=== PATIENT | female | born 1980 | race Caucasian/White ===

== ENCOUNTER 2018-08-26 08:07 | Emergency (ER) | payer SELFPAY ==
--- NOTE | 2018-08-26 09:18 | ER Document Report ---
ED General - General Chief Complaint: Possible Kidney Stone Stated Complaint: FLANK PAIN Time Seen by Provider: 08/26/18 08:29 Primary Care Provider: SAL GOODE MD [COMMUNITY BASED STAFF] - Follow up in 3-5 days Notes: Patient is a 37-year-old female that presents to the emergency department for chief complaint of constipation. Patient reports that she is been having intermittent abdominal cramping, and back pain mainly lower, and has not had a bowel movement in approximately 10 days. She was seen by her primary care physician 4 times over the last several days, for these complaints, she is been trying different medications including MiraLAX, magnesium citrate, Dulcolax, suppositories, and enemas without relief of her constipation. She states she has been eating without difficulty, denies having any abdominal distention, but does admit to having cramping which she currently rates as a 2 out of 10. She denies noting any vomiting in the last 24 hours, fevers, chills, dysuria, hematuria. Past Medical History: Kidney stones Past Surgical History: Denies pertinent surgical history Social History: Denies tobacco, alcohol or drug use. Family History: Reviewed and noncontributory for presenting illness Allergies: Reviewed, see documented allergy list. REVIEW OF SYSTEMS: Other than noted above, the 12 point review of systems was reviewed with the patient and were negative, all pertinent findings are included in the HPI. PHYSICAL EXAMINATION: Vital signs reviewed, nursing noted reviewed. GENERAL: Well-appearing, well-nourished and in no acute distress. HEAD: Atraumatic, normocephalic. EYES: Eyes appear normal, extraocular movements intact, sclera anicteric, conjunctiva are normal. ENT: nares patent, oropharynx clear without exudates. Moist mucous membranes. NECK: Normal range of motion, supple without lymphadenopathy LUNGS: Breath sounds clear to auscultation bilaterally and equal. No wheezes rales or rhonchi. HEART: Regular rate and rhythm without murmurs ABDOMEN: Soft, nontender, nondistended, normoactive bowel sounds. No rebound, guarding, or rigidity. No masses appreciated. EXTREMITIES: Nontender, good range of motion, no pitting or edema. NEUROLOGICAL: No focal neurological deficits. Moves all extremities spontaneously Motor and sensory grossly intact on exam. PSYCH: Normal mood, normal affect. SKIN: Warm, Dry, normal turgor, no rashes or lesions noted on exposed skin - Related Data Allergies/Adverse Reactions: cefaclor [From Ceclor] Allergy (Verified 08/26/18 08:09) Cephalosporins Allergy (Verified 08/26/18 08:09) hydromorphone HCl [From Dilaudid] Adverse Reaction (Intermediate, Verified 08/26/18 08:09) Hallucinations Past Medical History - Social History Smoking Status: Never Smoker Family History: Reviewed & Not Pertinent Patient has suicidal ideation: No Patient has homicidal ideation: No Neurological Medical History: Reports: Hx Seizures Renal/ Medical History: Reports: Hx Kidney Stones. Denies: Hx Peritoneal Dialysis Psychiatric Medical History: Reports: Hx Attention Deficit Hyperactivity Disorder - Immunizations Hx Diphtheria, Pertussis, Tetanus Vaccination: Yes Physical Exam - Vital signs Vitals: Temp Pulse Resp BP Pulse Ox 98.0 F 81 14 118/85 97 08/26/18 08:12 08/26/18 08:12 08/26/18 08:12 08/26/18 08:12 08/26/18 08:12 Course - Re-evaluation Re-evalutation: Patient seen and examined vital signs reviewed. Laboratory data and imaging were ordered as appropriate for the patient's presenting symptoms and complaint, with consideration of any critical or life threatening conditions that may be associated with their obtained history and exam as noted above. Patient was treated with soapsuds enema Results were reviewed when available and demonstrated moderate stool burden on x-ray UA unremarkable, urine negative The patient was re-evaluated and was stable Evaluation was most consistent with constipation, will prescribe the patient GoLYTELY as she was failed to have significant results with other [id number] medications. Results were discussed with the patient at this point, after careful consideration I feel that that patient can be discharged from the emergency department, the patient was educated treatments and reasons to return to the emergency department based on their presumed diagnosis as noted above, they were advised to followup with a primary care physician in 2-3 days. Patient was agreeable to plan of care. *Note is created using voice recognition software and may contain spelling, syntax or grammatical errors. Laboratory 08/26/18 08:30 Urine Color YELLOW Urine Appearance SLIGHTLY-CLOUDY Urine pH 7.0 Ur Specific [place] 1.013 Urine Protein NEGATIVE Urine Glucose (UA) NEGATIVE Urine Ketones NEGATIVE Urine Blood NEGATIVE Urine Nitrite NEGATIVE Urine Bilirubin NEGATIVE Urine Urobilinogen NEGATIVE Ur Leukocyte Esterase NEGATIVE Urine WBC (Auto) 3 Urine RBC (Auto) 3 Urine Bacteria (Auto) TRACE Squamous Epi Cells Auto 6 Urine Mucus (Auto) RARE Urine Ascorbic Acid NEGATIVE Urine HCG, Qual NEGATIVE KUB X-Ray 08/26/18 08:58 IMPRESSION: NO RADIOGRAPHIC EVIDENCE FOR ACUTE ABDOMINAL DISEASE. MODERATE STOOL CONSISTENT WITH CONSTIPATION. - Vital Signs Vital signs: Temp Pulse Resp BP Pulse Ox 98.2 F 75 18 122/81 100 08/26/18 12:10 08/26/18 12:10 08/26/18 12:10 08/26/18 12:10 08/26/18 12:10 Discharge - Discharge Clinical Impression: Constipation Qualifiers: Constipation type: unspecified constipation type Qualified Code(s): K59.00 - Constipation, unspecified Condition: Stable Disposition: HOME, SELF-CARE Instructions: Constipation ([facility]) Prescriptions: Peg 3350/Na Sulf,Bicarb,Cl/KCl [Golytely Solution 4000 ml] 4,000 ml PO DAILY #1 bottle Forms: Return to Work Referrals: SAL GOODE MD [COMMUNITY BASED STAFF] - Follow up in 3-5 days
[2018-08-26 09:28] LABS: APPEARANCE,URINE SLIGHTLY-CLOUDY; BILIRUBIN,URINE NEGATIVE (NEGATIVE); COLOR,URINE YELLOW; GLUCOSE, URINE NEGATIVE (NEGATIVE); KETONES,URINE NEGATIVE (NEGATIVE); LEUKOCYTE ESTERASE,URINE NEGATIVE (NEGATIVE); NITRITE,URINE NEGATIVE (NEGATIVE); PROTEIN,URINE NEGATIVE (NEGATIVE); URINE SPECIFIC GRAVITY 1.013; UROBILINOGEN,URINE NEGATIVE mg/dL (<2.0)
--- NOTE | 2018-08-26 09:49 | RADIOLOGY REPORT (SQ) ---
EXAM DESCRIPTION: KUB/ABDOMEN (SINGLE VIEW) COMPLETED DATE/TIME: 08/26/2018 9:37 am REASON FOR STUDY: constipation, abdominal pain COMPARISON: 05/04/2015. NUMBER OF VIEWS: One view. TECHNIQUE: Supine radiographic image of the abdomen acquired. LIMITATIONS: None. FINDINGS: BOWEL GAS PATTERN: Normal bowel gas pattern. No dilated loops. Moderate stool throughout colon consistent constipation. CALCIFICATIONS: No suspicious calcifications. SOFT TISSUES: No gross mass or suggestion of organomegaly. HARDWARE: None in the abdomen. BONES: No acute fracture. No worrisome bone lesions. OTHER: No other significant finding. IMPRESSION: NO RADIOGRAPHIC EVIDENCE FOR ACUTE ABDOMINAL DISEASE. MODERATE STOOL CONSISTENT WITH CO NSTIPATION. TECHNICAL DOCUMENTATION: JOB ID: [id number] [employer]- All Rights Reserved Reading location - IP/workstation name: [email or web address]
[2018-08-26 12:13] VITALS: BP 122/81
== END 2018-08-26 12:13 | disposition home or self-care (01) ==
LOC: ER 08:07
DX: K59.00 Constipation, unspecified (principal); Z88.1 Allergy status to other antibiotic agents
CPT/HCPCS: 74018; 81001; 81025; 99284

== ENCOUNTER → 2019-02-12 | Outpatient (CLI) | payer BC ==
--- NOTE | 2019-02-13 16:50 | WOMENS IMAGING REPORT ---
EXAM DESCRIPTION: 3D SCREENING MAMMO BILAT COMPLETED DATE/TIME: 02/12/2019 7:56 am REASON FOR STUDY: Z12.31 ENCOUNTER FOR SCREENING MAMMOGRAM FOR MALIGNANT NEOPLASM OF BREAST Z12.31 ENCNTR SCREEN MAMMOGRAM FOR MALIGNANT NEOPLASM OF KAYLI COMPARISON: None. EXAM PARAMETERS: Views: Standard craniocaudal and mediolateral oblique views of each breast recorded using digital acquisition and breast tomosynthesis. Read with the assistance of CAD. .[facility] - [employer]isher Version 9.2 LIMITATIONS: None. FINDINGS: No suspicious masses, suspicious calcifications or architectural distortion. No areas of c oncern. IMPRESSION: NEGATIVE MAMMOGRAM. BIRADS 1. BREAST DENSITY: b. There are scattered areas of fibroglandular density. BIRAD: ASSESSMENT: 1 NEGATIVE RECOMMENDATION: ROUTINE SCREENING COMMENT: The patient has been notified of the results by letter per MQSA requirements. Additional no tification policies are in place for contacting patient with suspicious or incomplete findings. Quality ID #[id number]: The [employer] recommends an annual screening mammogram for women aged 40 years or over. This facility utilizes a reminder system to ensure that all patients receive reminder letters, and/or direct phone calls for appointments. This includes reminders for routine scr eening mammograms, diagnostic mammograms, or other Breast Imaging Interventions when appropriate. Th is patient will be placed in the appropriate reminder system. TECHNICAL DOCUMENTATION: FINDING NUMBER: (1) ASSESSMENT: (1) JOB ID: [id number] [employer]- All Rights Reserved Reading location - IP/workstation name: [email or web address]
== END ==
LOC: WI 07:26
PROVIDERS: ATTEND Obstetrics & Gynecology Gynecology
DX: Z12.31 Encounter for screening mammogram for malignant neoplasm of breast (principal)
CPT/HCPCS: 77063; 77067

== ENCOUNTER 2019-05-05 08:48 | Emergency (ER) | payer BC ==
[2019-05-05 09:36] LABS: APPEARANCE,URINE SLIGHTLY-CLOUDY; BILIRUBIN,URINE NEGATIVE (NEGATIVE); CALCIUM OXALATE CRYSTALS,URINE FEW /HPF; COLOR,URINE YELLOW; GLUCOSE, URINE NEGATIVE (NEGATIVE); KETONES,URINE 20 mg/dL (NEGATIVE); LEUKOCYTE ESTERASE,URINE NEGATIVE (NEGATIVE); NITRITE,URINE NEGATIVE (NEGATIVE); PROTEIN,URINE NEGATIVE (NEGATIVE); URINE SPECIFIC GRAVITY 1.021
[2019-05-05 10:07] LABS: ABSOLUTE MONOCYTES (AUTO) 0.4 10^3/uL (0.1-1.4); BASOPHILS % (AUTO) 0.7 % (0-2); TOTAL CELLS COUNTED % (AUTO) 100 %
[2019-05-05 10:12] LABS: ABSOLUTE LYMPHOCYTES (AUTO) 1.3 10^3/uL (0.5-4.7); ABSOLUTE NEUT (AUTO) 3.5 10^3/uL (1.7-8.2); EOSINOPHILS % (AUTO) 0.7 % (0-6); HEMATOCRIT 43.3 % (36.0-47.0); HEMOGLOBIN 14.6 g/dL (12.0-15.5); LYMPHOCYTES % (AUTO) 25.4 % (13-45); MEAN CORPUSCULAR HEMOGLOBIN 32.1 pg (27.0-33.4); MEAN CORPUSCULAR HGB CONC 33.7 g/dL (32.0-36.0); MEAN CORPUSCULAR VOLUME 95 fl (80-97); MONOCYTES % (AUTO) 6.8 % (3-13); PLATELET COUNT 235 10^3/uL (150-450); RED BLOOD COUNT 4.54 10^6/uL (3.72-5.28); RED CELL DISTRIBUTION WIDTH 12.2 % (11.5-14.0); SEGMENTED NEUTROPHILS % (AUTO) 66.4 % (42-78); WHITE BLOOD COUNT 5.2 10^3/uL (4.0-10.5)
[2019-05-05] MEDS ORDERED: NORMAL SALINE 1000 ML 1,000 ML IV ONE ×2 (10:18→11:14)
[2019-05-05] MEDS ORDERED: ONDANSETRON HCL INJ/PF 4 MG/2 ML SDV IV ONE (10:18)
--- NOTE | 2019-05-05 10:19 | ER Document Report ---
ED Medical Screen (RME) - General Chief Complaint: Nausea/Vomiting Stated Complaint: NAUSEA/VOMITING Time Seen by Provider: 05/05/19 10:10 Mode of Arrival: Ambulatory Information source: Patient Notes: Patient presents complaining of nausea with vomiting this morning. Patient states that she had a panic attack which prompted her visit here today patient states that she has had panic attacks since the end of February which coincides with when she was started on free T3. Patient feels that she is having a thyroid issue causing her nausea vomiting and panic attacks at this time. She denies any abdominal pain. I have greeted and performed a rapid initial assessment of this patient. A comprehensive ED assessment and evaluation of the patient, analysis of test results and completion of the medical decision making process will be conducted by additional ED providers. TRAVEL OUTSIDE OF THE [place] IN LAST 30 DAYS: No - Related Data Allergies/Adverse Reactions: cefaclor [From Ceclor] Allergy (Verified 05/05/19 08:58) Cephalosporins Allergy (Verified 05/05/19 08:58) hydromorphone HCl [From Dilaudid] Adverse Reaction (Intermediate, Verified 05/05/19 08:58) Hallucinations Past Medical History Neurological Medical History: Reports: Hx Seizures Renal/ Medical History: Reports: Hx Kidney Stones. Denies: Hx Peritoneal Dialysis Psychiatric Medical History: Reports: Hx Attention Deficit Hyperactivity Disorder - Immunizations Hx Diphtheria, Pertussis, Tetanus Vaccination: Yes Physical Exam - Vital signs Vitals: Temp Pulse Resp BP Pulse Ox 98.5 F 93 18 121/79 98 05/05/19 08:51 05/05/19 08:51 05/05/19 08:51 05/05/19 08:51 05/05/19 08:51 - General General appearance: Appears well, Alert In distress: None - Psychological Associated symptoms: Anxious Course - Vital Signs Vital signs: Temp Pulse Resp BP Pulse Ox 98.5 F 93 18 121/79 98 05/05/19 08:51 05/05/19 08:51 05/05/19 08:51 05/05/19 08:51 05/05/19 08:51 - Laboratory Result Diagrams: 05/05/19 09:50 05/05/19 09:50 Laboratory results interpreted by me: 05/05/19 09:07 Urine Ketones 20 H Urine Blood SMALL H Urine Urobilinogen 2.0 H
[2019-05-05 10:29] LABS: ALBUMIN 4.5 g/dL (3.5-5.0); ALKALINE PHOSPHATASE 77 U/L (38-126); ANION GAP 10 (5-19); ASPARTATE AMINO TRANSFERASE 17 U/L (14-36); BILIRUBIN,DIRECT 0.1 mg/dL (0.0-0.4); BILIRUBIN,TOTAL 0.8 mg/dL (0.2-1.3); BLOOD UREA NITROGEN 6 mg/dL (7-20); CALCIUM 10.5 mg/dL (8.4-10.2); CARBON DIOXIDE 27 mmol/L (22-30); CHLORIDE 102 mmol/L (98-107); GLUCOSE 96 mg/dL (75-110); POTASSIUM 4.3 mmol/L (3.6-5.0); TOTAL PROTEIN 7.9 g/dL (6.3-8.2)
[2019-05-05 10:49] LABS: FREE T3 3.22 pg/mL (2.77-5.27); FREE T4 (FREE THYROXINE) 1.29 ng/dL (0.78-2.19)
[2019-05-05 11:02] LABS: THYROID STIMULATING HORMONE 0.02 uIU/mL (0.47-4.68)
--- NOTE | 2019-05-05 11:21 | ER Document Report ---
ED General <JOSUÉ BROWN - Last Filed: 05/05/19 12:56> - General Mode of Arrival: Ambulatory TRAVEL OUTSIDE OF THE [place] IN LAST 30 DAYS: No <BUFFY BRUNO - Last Filed: 05/05/19 13:41> - General Chief Complaint: Nausea/Vomiting Stated Complaint: NAUSEA/VOMITING Time Seen by Provider: 05/05/19 10:10 Primary Care Provider: [facility] [Outside] - Follow up as needed - HPI Notes: Ms. Watkins is a 38-year-old female who is been under the care of a nurse practitioner receiving thyroid replacement therapy for hypothyroidism. She comes in today reporting a 3-month history of weight loss of almost 15 pounds associated with shakiness and recurrent vague fluttering sensation in her chest and feelings as though she is having a panic attack. She has intermittent vomiting. She vomited once this morning and decided was time to come to the hospital. Patient denies suicidal ideation. Denies homicidal ideation. She denies hallucinations. She denies any use of alcohol or tobacco. (BUFFY BRUNO) - Related Data Allergies/Adverse Reactions: cefaclor [From Ceclor] Allergy (Verified 05/05/19 08:58) Cephalosporins Allergy (Verified 05/05/19 08:58) hydromorphone HCl [From Dilaudid] Adverse Reaction (Intermediate, Verified 05/05/19 08:58) Hallucinations Past Medical History - General Information source: Patient - Social History Smoking Status: Never Smoker Family History: Reviewed & Not Pertinent Patient has suicidal ideation: No Patient has homicidal ideation: No Neurological Medical History: Reports: Hx Seizures Endocrine Medical History: Reports: Hx Hypothyroidism Renal/ Medical History: Reports: Hx Kidney Stones. Denies: Hx Peritoneal Dialysis Psychiatric Medical History: Reports: Hx Attention Deficit Hyperactivity Disorder - Immunizations Hx Diphtheria, Pertussis, Tetanus Vaccination: Yes <BUFFY BRUNO - Last Filed: 05/05/19 13:41> Review of Systems <BUFFY BRUNO - Last Filed: 05/05/19 13:41> - Review of Systems Notes: Constitutional: Negative for fever. HENT: Negative for sore throat. Eyes: Negative for visual changes. Cardiovascular: Negative for chest pain. Intermittent palpitations. Respiratory: Negative for shortness of breath. Gastrointestinal: As per HPI. Genitourinary: Negative for dysuria. Musculoskeletal: Negative for back pain. Skin: Negative for rash. Neurological: Negative for headaches, weakness or numbness. 10 point ROS negative except as marked above and in HPI. (BUFFY BRUNO) Physical Exam <BUFFY BRUNO - Last Filed: 05/05/19 13:41> - Vital signs Vitals: Temp Pulse Resp BP Pulse Ox 98.5 F 93 18 121/79 98 05/05/19 08:51 05/05/19 08:51 05/05/19 08:51 05/05/19 08:51 05/05/19 08:51 Notes: GENERAL: Well-developed well-nourished appearing in no acute distress. SKIN: Good turgor no rashes. HEAD: Normocephalic atraumatic. EYES: PERRLA. Conjunctivae and sclerae clear. EARS: CANALS AND TMS CLEAR. NOSE: CLEAR. MOUTH: Moist mucosa. Good dentition. No stridor or edema. No drooling. NECK: Supple. No masses or thyromegaly. No adenopathy. Carotids 2+ without bruits. No JVD. BACK: Symmetrical without tenderness. CHEST: Respirations unlabored. Breath sounds clear and symmetrical. HEART: Regular rhythm. No murmur gallop or rub. ABDOMEN: Soft nontender without masses, organomegaly or rebound. Bowel sounds normally active. No bruits. GENITALIA: Deferred. EXTREMITIES: No edema. No calf tenderness. Cap refill less than 1.5 seconds. Dorsalis pedis and posterior tibial pulses 3+ and symmetrical. NEUROLOGICAL: GCS 15. Alert and oriented x3. Normal gait. Fluent speech. Cranial nerves II through XII intact. Sensorimotor and cerebellar normal. Normal tone. Psychiatric: Anxious. (BUFFY BRUNO) Course - Laboratory Result Diagrams: 05/05/19 09:50 05/05/19 09:50 <JOSUÉ BROWN - Last Filed: 05/05/19 12:56> - Laboratory Result Diagrams: 05/05/19 09:50 05/05/19 09:50 - EKG Interpretation by Id EKG shows normal: Sinus rhythm Rate: Normal - 72 Rhythm: NSR <BUFFY BRUNO - Last Filed: 05/05/19 13:41> - Re-evaluation Re-evalutation: 05/05/19 13:40 Seen by behavioral health social work assistant agrees she is not suicidal/homicidal or psychotic and does not require inpatient psychiatric evaluation or management at this time. I have asked her to withhold her thyroid until she is seen by her lapeler within a couple days. Tolerating p.o. fluids and feels much better and is ready for discharge. (BUFFY BRUNO) - Vital Signs Vital signs: Temp Pulse Resp BP Pulse Ox 98.2 F 67 18 116/78 100 05/05/19 10:48 05/05/19 10:48 05/05/19 10:48 05/05/19 10:48 05/05/19 10:48 - Laboratory Laboratory results interpreted by me: 05/05/19 05/05/19 05/05/19 09:07 09:50 09:50 BUN 6 L Calcium 10.5 H TSH 0.02 L Urine Ketones 20 H Urine Blood SMALL H Urine Urobilinogen 2.0 H - EKG Interpretation by Me Additional EKG results interpreted by me: 05/05/19 11:46 Normal tracing (BUFFY BRUNO) Discharge <JOSUÉ BROWN - Last Filed: 05/05/19 12:56> <BUFFY BRUNO - Last Filed: 05/05/19 13:41> - Discharge Clinical Impression: Anxiety Condition: Stable Disposition: HOME, SELF-CARE Additional Instructions: You have been evaluated by both medical and behavioral health teams and have been deemed appropriate for discharge. Please follow up with your mental health provider. Please keep scheduled medication management appointment. You have been provided with the contact information for mobile crisis, as needed. Anxiety The physician feels that some of your health problems are being caused by anxiety. Anxiety affects your health in many ways. Anxiety alone can cause palpitations, sweats, chest pains, abdominal pains, shortness of breath, and headaches. It contributes to ulcer disease, high blood pressure, irritable bowel syndrome, and has been shown to cause flare-ups of many other diseases. Anxiety is not a simple disorder to treat. If the anxiety is due to recent life stresses, you may simply need time to "work through" the changes. If the anxiety is due to an underlying unhappiness with yourself or due to psychiatric disturbance, professional help will be needed. Your physician can refer you for further help if needed. Anti-anxiety medication is occasionally given if the stress is acute or if you are having trouble sleeping. Chronic or frequent use of these medications is not a good idea because the body becomes reliant on it, preventing you from dealing with life's normal stresses. Depression Your evaluation reveals that you have mental depression. While symptoms may be vague, they often include disturbance of sleep, fatigue, loss of appetite, and general loss of interest in life. While depression may be a side effect of drugs, or a reaction to a major change in your life, many cases have no known ca use. If depression is acute, and related to a major loss in your life, you can expect it to clear completely with time. If you have been depressed a long time, are prone to repeated bouts of depression or low mood, or have been thinking of suicide, get help. Depression can be treated with anti-depressant medication and counselling. Long-term depression will often take a few weeks to clear, even with appropriate medication. Follow-up care is important. Contact your physician, the hospital emergency center, crisis line, or your counsellor if you are losing control or having self-destructive thoughts. AT ANY TIME, IF YOUR SYMPTOMS CHANGE SIGNIFICANTLY OR WORSEN OR YOU DEVELOP NEW SYMPTOMS, RETURN TO THE EMERGENCY DEPARTMENT IMMEDIATELY FOR RE-EVALUATION. Referrals: [facility] [Outside] - Follow up as needed
[2019-05-05] MEDS ORDERED: ACETAMINOPHEN 325 MG TABLET PO ONE (12:35)
[2019-05-05 14:13] VITALS: BP 112/80
--- NOTE | 2019-05-05 15:24 | PSYCHOLOGICAL NOTE ---
Psych Note - Psych Note Date seen by psych provider: 05/05/19 Time seen by psych provider: 11:30 Psych Note: Reason for consult: Anxiety Patient presents to ED via POV. Patient complains of panic attacks over the last 4 days. Patient was laying in the bed chatting with her 15 year old daughter when clinician entered the room. Clinician exchanged pleasantries and asked daughter to step out. Patient stated she has had issues with her thyroid and went to see an Employee Benefits Specialist. Patient stated she was placed on medication to manage thyroid function. Patient subsequently went to see a Naturopathic who encouraged patient to take additional medication to manage reverse T3. Patient stated since she began taking the medication to manage reverse T3, symptoms of rumination and anxiety began. Patient described feeling crazy. Patient stated it took me a while to figure out what was going on. Patient described days that I felt normal and realized it was days she forgot to take the thyroid medications. Patient was prescribed Valium, and stated I should have known it was something else when the Valium did nothing [to ease anxiety]. Patient stated her depression and anxiety has never been like this before. Patient frequently stated the ruminating thoughts and anxiety are out of character for her. Patient stated frequently that her current symptoms are the result of overmedication for my thyroid. Patient states she will go back to see the Employee Benefits Specialist for her thyroid issues and discontinue use of additional thyroid medication. Patient denied suicidal and homicidal ideations. Patient denies auditory and visual hallucinations. Patient has a history of depression. Patient is engaged in mental health services. Patient has an appointment with Dr. Ellington on Monday to explore possible medication management. Patient is alert and oriented to person, place, time and circumstance. Mood is euthymic with congruent affect as evidenced by smiling, laughing and engaging with clinician. Patient denies suicidal and homicidal ideation. Delusions are absent and behavior is congruent with an intact reality based presentation (i.e. organized and linear thought processes). There is no observed behavior that suggests patient is responding to internal stimuli. Eye contact is good. Conversational speech is within normal rate, tone, and prosody. Intellectual ability appears to be within average range. Attention and concentration are good. Insight, judgment, and impulse control are good. Diagnosis: Per history, Anxiety Per history, Depression Medication recommendations per [facility] contracted psychiatrist Dr. Lili PERSON is as follows: NONE Impression/Plan: Patient is cleared from acute psychiatric services. Patient does not meet IVC criteria per [place] GS 122C. Patient denies suicidal and homicidal ideations. Patient denies auditory and visual hallucinations. There is no observed behavior that suggests patient is responding to internal stimuli. Patient expressed insight and judgement into her current circumstance as evidenced by identifying the additional thyroid medication is the cause for the increase in anxiety and verbalizes she has no intention of taking the medication the Naturopathic advised. Patient was adamant that she will only see the Employee Benefits Specialist for thyroid medication management. Patient has a mental health provider she sees once a week. Patient has an appointment to explore medication management. Dr. Kaiser was consulted on the care and management of this patient; attending physician is in agreement with recommendations and disposition.
--- NOTE | 2019-05-05 23:15 | EKG REPORT ---
SEVERITY:- NORMAL ECG - SINUS RHYTHM : Confirmed by: Obed Lu 05-May-2019 23:14:42
== END 2019-05-05 14:12 | disposition home or self-care (01) ==
LOC: ER 08:48
DX: F41.9 Anxiety disorder, unspecified (principal); R00.2 Palpitations; R63.4 Abnormal weight loss; R11.2 Nausea with vomiting, unspecified; E03.9 Hypothyroidism, unspecified; Z79.899 Other long term (current) drug therapy; Z88.1 Allergy status to other antibiotic agents
CPT/HCPCS: 93005; 36415; 84439; 83690; 84443; 84703; 85025; 81025; 80053; 81001; 84481; 93010; J2405; J7030; 96361; 96374; 99285

== ENCOUNTER 2020-03-18 11:37 | Emergency (ER) | payer BC ==
[2020-03-18] MEDS ORDERED: KETOROLAC TROMETHAMINE INJ/PF 30 MG/1 ML SDV IV ONE (12:23)
[2020-03-18] MEDS ORDERED: ONDANSETRON HCL INJ/PF 4 MG/2 ML SDV IV ONE (12:23)
--- NOTE | 2020-03-18 12:25 | ER Document Report ---
ED Medical Screen (RME) - General Chief Complaint: Flank Pain Stated Complaint: LEFT FLANK PAIN Time Seen by Provider: 03/18/20 12:15 TRAVEL OUTSIDE OF THE [place] IN LAST 30 DAYS: No - HPI Notes: 03/18/20 12:23 39-year-old female with history of hypercalcemia, parathyroid disease, parathyroidectomy, kidney stones to the emergency department with complaints of bilateral flank pain that began a couple weeks ago and is gotten significantly worse in the past several days. She admits to associated nausea as well as painful urination. She does not qualify it as burning but states she cannot feels like she is being stabbed. She states her urine is dark so she is not sure if she is seeing any blood in her urine. She does have a history of kidney stones and this feels similar to prior episodes. She states that she had her parathyroid out in July and she is supposed to not make any further stones afterwards because that was the root cause of her hypercalcemia. However, she does admit that she had kidneys full of stones prior to the surgery. Denies any other complaints. Denies any fevers, chills, cough, chest pain, shortness of breath. I performed a brief medical screening exam on the patient determined that the patient needs further evaluation and management by main side provider. I have placed initial orders to help expedite care. - Related Data Allergies/Adverse Reactions: cefaclor [From Ceclor] Allergy (Verified 05/05/19 08:58) Cephalosporins Allergy (Verified 05/05/19 08:58) hydromorphone HCl [From Dilaudid] Adverse Reaction (Intermediate, Verified 05/05/19 08:58) Hallucinations Past Medical History Neurological Medical History: Reports: Hx Seizures Endocrine Medical History: Reports: Hx Hypothyroidism Renal/ Medical History: Reports: Hx Kidney Stones. Denies: Hx Peritoneal Dialysis Psychiatric Medical History: Reports: Hx Attention Deficit Hyperactivity Disorder - Immunizations Hx Diphtheria, Pertussis, Tetanus Vaccination: Yes Physical Exam - Vital signs Vitals: Temp Pulse Resp BP Pulse Ox 98.3 F 86 16 102/69 98 03/18/20 11:51 03/18/20 11:51 03/18/20 11:51 03/18/20 11:51 03/18/20 11:51 Course - Vital Signs Vital signs: Temp Pulse Resp BP Pulse Ox 98.3 F 86 16 102/69 98 03/18/20 11:51 03/18/20 11:51 03/18/20 11:51 03/18/20 11:51 03/18/20 11:51
[2020-03-18 12:45] LABS: APPEARANCE,URINE CLEAR; BILIRUBIN,URINE NEGATIVE (NEGATIVE); COLOR,URINE YELLOW; GLUCOSE, URINE NEGATIVE (NEGATIVE); KETONES,URINE 20 mg/dL (NEGATIVE); LEUKOCYTE ESTERASE,URINE NEGATIVE (NEGATIVE); NITRITE,URINE NEGATIVE (NEGATIVE); PROTEIN,URINE 30 mg/dL (NEGATIVE); URINE SPECIFIC GRAVITY 1.027; UROBILINOGEN,URINE NEGATIVE mg/dL (<2.0)
--- NOTE | 2020-03-18 13:32 | RADIOLOGY REPORT (SQ) ---
EXAM DESCRIPTION: U/S RETROPERITON (RENAL/AORTA) IMAGES COMPLETED DATE/TIME: 03/18/2020 1:16 pm REASON FOR STUDY: bilateral flank pain, hx of stones COMPARISON: None. TECHNIQUE: Dynamic and static grayscale images acquired of the kidneys and bladder and recorded on P ACS. Additional selected color Doppler and spectral images recorded. LIMITATIONS: None. FINDINGS: RIGHT KIDNEY: Normal size. Normal echogenicity. No solid or suspicious masses. No hydronep hrosis. No calcifications. LEFT KIDNEY: Normal size. Normal echogenicity. No solid or suspicious masses. No hydronephrosis. No calcifications. BLADDER: No masses. OTHER FINDINGS: No other significant finding. IMPRESSION: NORMAL RENAL AND BLADDER ULTRASOUND. TECHNICAL DOCUMENTATION: JOB ID: [id number] [email or web address]- All Rights Reserved Reading location - IP/workstation name: [email or web address]
--- NOTE | 2020-03-18 13:34 | ER Document Report ---
ED General - General Chief Complaint: Flank Pain Stated Complaint: LEFT FLANK PAIN Time Seen by Provider: 03/18/20 12:15 Mode of Arrival: Ambulatory Information source: Patient Notes: Patient is a 39-year-old female presenting to the emergency department chief complaint of 2 to 3-day history of left-sided flank pain. Patient states she does have a prior history of kidney stones. Patient denies fevers chills no travel history no trauma history no overexertion to account for the discomfort. Patient further states that her urine has been cloudier than normal. Last menstrual period was 06 March. TRAVEL OUTSIDE OF THE [place] IN LAST 30 DAYS: No - HPI Onset: Last week Onset/Duration: Intermittent, Worse Quality of pain: Achy Severity: Mild Pain Level: 1 Associated symptoms: None Exacerbated by: Denies Relieved by: Denies Similar symptoms previously: Yes Recently seen / treated by doctor: No - Related Data Allergies/Adverse Reactions: cefaclor [From Ceclor] Allergy (Verified 05/05/19 08:58) Cephalosporins Allergy (Verified 05/05/19 08:58) hydromorphone HCl [From Dilaudid] Adverse Reaction (Intermediate, Verified 05/05/19 08:58) Hallucinations Past Medical History - General Information source: Patient - Social History Smoking Status: Unknown if Ever Smoked Chew tobacco use (# tins/day): No Frequency of alcohol use: None Drug Abuse: None Lives with: Family Family History: Reviewed & Not Pertinent Patient has suicidal ideation: No Patient has homicidal ideation: No Neurological Medical History: Reports: Hx Seizures Endocrine Medical History: Reports: Hx Hypothyroidism Renal/ Medical History: Reports: Hx Kidney Stones. Denies: Hx Peritoneal Dialysis Psychiatric Medical History: Reports: Hx Attention Deficit Hyperactivity Disorder - Immunizations Hx Diphtheria, Pertussis, Tetanus Vaccination: Yes Review of Systems - Review of Systems Notes: REVIEW OF SYSTEMS: CONSTITUTIONAL : Denies fever, chills, or sweats. Denies recent illness. EENT: Denies eye, ear, throat, or mouth pain or symptoms. Denies nasal or sinus congestion. CARDIOVASCULAR: Denies chest pain. RESPIRATORY: Denies cough, cold, or chest congestion. Denies shortness of breath, difficulty breathing, or wheezing. GASTROINTESTINAL: Denies abdominal pain. Denies nausea, vomiting, or diarrhea. Denies constipation. GENITOURINARY: Per HPI MUSCULOSKELETAL: Denies neck or back pain or joint pain or swelling. SKIN: Denies rash or skin lesions. HEMATOLOGIC : Denies easy bruising or bleeding. NEUROLOGICAL: Denies altered mental status or loss of consciousness. Denies headache. Denies weakness or paralysis or loss of use of either side. Denies problems with gait or speech. Denies sensory or motor loss. PSYCHIATRIC: Denies suicidal or homicidal ideations 10 Systems are negative unless otherwise specified above Physical Exam - Vital signs Vitals: Temp Pulse Resp BP Pulse Ox 98.3 F 86 16 102/69 98 03/18/20 11:51 03/18/20 11:51 03/18/20 11:51 03/18/20 11:51 03/18/20 11:51 - Notes Notes: PHYSICAL EXAMINATION: GENERAL: Well-appearing, well-nourished and in no acute distress. HEAD: Atraumatic, normocephalic. EYES: Pupils equal round and reactive to light, extraocular movements intact, sclera anicteric, conjunctiva are normal. ENT: nares patent, oropharynx clear without exudates. Moist mucous membranes. NECK: Normal range of motion, supple without lymphadenopathy, no appreciable JVD LUNGS: Lungs clear to auscultation bilaterally and equal. No wheezes rales or rhonchi. HEART: Regular rate and rhythm without murmurs ABDOMEN: Soft, nontender, normal bowel sounds. No guarding, no rebound. No masses appreciated. Patient does have mild CVA tenderness on the left. EXTREMITIES: Active full range of motion, no pitting or edema. No cyanosis. 2+ pulses x4 NEUROLOGICAL: No focal neurological deficits. Moves all extremities spontaneously and on command. SKIN: Warm, Dry, and intact. Normal turgor, no rashes or lesions noted. Course - Re-evaluation Re-evalutation: 03/18/20 14:43 Patient has been reevaluated several times while in the emergency department. Patient has remained stable without decompensation. After review of applicable laboratory and/or radiologic results, there are no signs of acute abdomen to include: acute appendicitis, pancreatitis, cholelithiasis or cholecystitis, bowel obstruction or ileus, there are no signs of Aortic Dissection, diverticulitis or diverticulosis, Kidney abnormalities to include urinary tract infection, renal failure or kidney stones. 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 I have reviewed the laboratory and/or radiologic results with the patient answered all questions. Patient is agreeable with discharge at this time. Patient is recommended to follow-up with primary care provider in the next several days for follow-up. Patient should return to the emergency department for worsening symptoms to include worsening pain, bloody vomitus, bloody diarrhea, inability to tolerate fluids or fever greater than 101 orally. - Vital Signs Vital signs: Temp Pulse Resp BP Pulse Ox 98.3 F 86 16 109/76 100 03/18/20 11:51 03/18/20 11:51 03/18/20 13:24 03/18/20 14:00 03/18/20 14:01 - Laboratory Result Diagrams: 03/18/20 13:20 03/18/20 13:20 Laboratory results interpreted by me: 03/18/20 03/18/20 11:48 13:20 Sodium 135.6 L Urine Protein 30 H Urine Ketones 20 H - Diagnostic Test Radiology reviewed: Reports reviewed Discharge - Discharge Clinical Impression: Flank pain Condition: Stable Disposition: HOME, SELF-CARE Instructions: Abdominal Pain ([facility]) Additional Instructions: Recommend following up with your physician as needed please take medication as prescribed. Prescriptions: Ondansetron [Zofran Odt 4 mg Tablet] 1 - 2 tab PO Q4H PRN #15 tab.rapdis PRN Reason: For Nausea/Vomiting
[2020-03-18 13:40] LABS: ABSOLUTE BASOPHILS # (AUTO) 0.1 10^3/uL (0.0-0.2); ABSOLUTE EOSINOPHILS # (AUTO) 0.2 10^3/uL (0.0-0.6); ABSOLUTE LYMPHOCYTES (AUTO) 2.2 10^3/uL (0.5-4.7); ABSOLUTE MONOCYTES (AUTO) 0.5 10^3/uL (0.1-1.4); ABSOLUTE NEUT (AUTO) 3.8 10^3/uL (1.7-8.2); BASOPHILS % (AUTO) 0.8 % (0-2); HEMOGLOBIN 13.2 g/dL (12.0-15.5); LYMPHOCYTES % (AUTO) 32.4 % (13-45); MEAN CORPUSCULAR HEMOGLOBIN 33.2 pg (27.0-33.4); MEAN CORPUSCULAR HGB CONC 34.9 g/dL (32.0-36.0); MEAN CORPUSCULAR VOLUME 95 fl (80-97); MONOCYTES % (AUTO) 7.3 % (3-13); PLATELET COUNT 269 10^3/uL (150-450); RED BLOOD COUNT 3.99 10^6/uL (3.72-5.28); RED CELL DISTRIBUTION WIDTH 12.7 % (11.5-14.0); SEGMENTED NEUTROPHILS % (AUTO) 56.5 % (42-78); TOTAL CELLS COUNTED % (AUTO) 100 %; WHITE BLOOD COUNT 6.7 10^3/uL (4.0-10.5)
[2020-03-18] MEDS ORDERED: NORMAL SALINE 1000 ML 1,000 ML IV ONE (14:00)
[2020-03-18 14:07] LABS: ALKALINE PHOSPHATASE 65 U/L (38-126); ANION GAP 8 (5-19); ASPARTATE AMINO TRANSFERASE 21 U/L (14-36); BILIRUBIN,DIRECT 0.2 mg/dL (0.0-0.4); BILIRUBIN,TOTAL 0.7 mg/dL (0.2-1.3); BLOOD UREA NITROGEN 12 mg/dL (7-20); CARBON DIOXIDE 26 mmol/L (22-30); CHLORIDE 102 mmol/L (98-107); GLUCOSE 85 mg/dL (75-110); POTASSIUM 4.2 mmol/L (3.6-5.0); TOTAL PROTEIN 6.9 g/dL (6.3-8.2)
[2020-03-18] MEDS ORDERED: ONDANSETRON 4 MG TAB.RAPDIS PO ONE (14:37)
[2020-03-18 15:14] VITALS: BP 127/82
== END 2020-03-18 15:18 | disposition home or self-care (01) ==
LOC: ER 11:37
DX: R10.9 Unspecified abdominal pain (principal); R39.89 Other symptoms and signs involving the genitourinary system; Z87.442 Personal history of urinary calculi; Z88.1 Allergy status to other antibiotic agents
CPT/HCPCS: 99285; 96361; 96374; 96375; 36415; 85025; 81025; 80053; 81001; 76770; S0119; J1885; J2405; J7030

== ENCOUNTER 2020-05-02 22:52 | Emergency (ER) | payer BC ==
[2020-05-03 00:09] LABS: APPEARANCE,URINE CLEAR; BILIRUBIN,URINE NEGATIVE (NEGATIVE); COLOR,URINE COLORLESS; GLUCOSE, URINE NEGATIVE (NEGATIVE); KETONES,URINE NEGATIVE (NEGATIVE); LEUKOCYTE ESTERASE,URINE NEGATIVE (NEGATIVE); NITRITE,URINE NEGATIVE (NEGATIVE); PROTEIN,URINE NEGATIVE (NEGATIVE); URINE SPECIFIC GRAVITY 1.004; UROBILINOGEN,URINE NEGATIVE mg/dL (<2.0)
[2020-05-03] MEDS ORDERED: KETOROLAC TROMETHAMINE 60 MG/2 ML SDV IM ONE (00:18)
[2020-05-03] MEDS ORDERED: METOCLOPRAMIDE HCL 10 MG TABLET PO ONE (00:18)
--- NOTE | 2020-05-03 00:21 | ER Document Report ---
ED Medical Screen (RME) - General Chief Complaint: Dizziness Stated Complaint: HEADACHE NAUSEA/ POSSIBLE HIGH BLOOD PRESSURE Time Seen by Provider: 05/03/20 00:18 Primary Care Provider: KELY HERNANDEZ MD [Primary Care Provider] - Follow up as needed Mode of Arrival: Ambulatory Information source: Patient Notes: Patient is a 39-year-old female presenting today with nausea, headache, facial paresthesias. She has a history of hyper plasia of the parathyroid glands. She had 3 of the 4 glands removed. She has been struggling to keep her calcium levels up. She was started on hydrochlorothiazide today and she feels like it is actually made her symptoms worse. General: Appears very uncomfortable and tearful Neuro no focal deficits I have greeted and performed a rapid initial assessment of this patient. A comprehensive ED assessment and evaluation of the patient, analysis of test results and completion of the medical decision making process will be conducted by additional ED providers. TRAVEL OUTSIDE OF THE [place] IN LAST 30 DAYS: No - Related Data Allergies/Adverse Reactions: cefaclor [From Ceclor] Allergy (Verified 05/05/19 08:58) Cephalosporins Allergy (Verified 05/05/19 08:58) hydromorphone HCl [From Dilaudid] Adverse Reaction (Intermediate, Verified 05/05/19 08:58) Hallucinations Home Medications: HCTZ, prozac, citrical, progesterone, terrisent Past Medical History Neurological Medical History: Reports: Hx Seizures Endocrine Medical History: Reports: Hx Hypothyroidism Renal/ Medical History: Reports: Hx Kidney Stones. Denies: Hx Peritoneal Dialysis Psychiatric Medical History: Reports: Hx Attention Deficit Hyperactivity Disorder - Immunizations Hx Diphtheria, Pertussis, Tetanus Vaccination: Yes Physical Exam - Vital signs Vitals: Temp Pulse Resp BP Pulse Ox 98.4 F 75 17 136/99 H 100 05/02/20 23:16 05/02/20 23:16 05/02/20 23:16 05/02/20 23:16 05/02/20 23:16 Course - Vital Signs Vital signs: Temp Pulse Resp BP Pulse Ox 98.4 F 75 17 136/99 H 100 05/02/20 23:16 05/02/20 23:16 05/02/20 23:16 05/02/20 23:16 05/02/20 23:16 - Laboratory Laboratory results interpreted by me: 05/02/20 23:29 Urine Blood MODERATE H Doctor's Discharge - Discharge Referrals: KELY HERNANDEZ MD [Primary Care Provider] - Follow up as needed
[2020-05-03 00:52] LABS: ABSOLUTE BASOPHILS # (AUTO) 0.1 10^3/uL (0.0-0.2); ABSOLUTE EOSINOPHILS # (AUTO) 0.3 10^3/uL (0.0-0.6); ABSOLUTE LYMPHOCYTES (AUTO) 3.4 10^3/uL (0.5-4.7); ABSOLUTE MONOCYTES (AUTO) 0.5 10^3/uL (0.1-1.4); ABSOLUTE NEUT (AUTO) 3.9 10^3/uL (1.7-8.2); BASOPHILS % (AUTO) 1.1 % (0-2); EOSINOPHILS % (AUTO) 3.8 % (0-6); HEMATOCRIT 41.5 % (36.0-47.0); HEMOGLOBIN 14.1 g/dL (12.0-15.5); MEAN CORPUSCULAR HEMOGLOBIN 33.2 pg (27.0-33.4); MEAN CORPUSCULAR HGB CONC 33.9 g/dL (32.0-36.0); MEAN CORPUSCULAR VOLUME 98 fl (80-97); MONOCYTES % (AUTO) 6.1 % (3-13); PLATELET COUNT 283 10^3/uL (150-450); RED BLOOD COUNT 4.25 10^6/uL (3.72-5.28); RED CELL DISTRIBUTION WIDTH 12.7 % (11.5-14.0); TOTAL CELLS COUNTED % (AUTO) 100 %; WHITE BLOOD COUNT 8.2 10^3/uL (4.0-10.5)
[2020-05-03 01:12] LABS: ALBUMIN 4.5 g/dL (3.5-5.0); ALKALINE PHOSPHATASE 74 U/L (38-126); ANION GAP 9 (5-19); ASPARTATE AMINO TRANSFERASE 26 U/L (14-36); BILIRUBIN,DIRECT 0.1 mg/dL (0.0-0.4); BILIRUBIN,TOTAL 0.4 mg/dL (0.2-1.3); BLOOD UREA NITROGEN 17 mg/dL (7-20); CALCIUM 9.9 mg/dL (8.4-10.2); CARBON DIOXIDE 30 mmol/L (22-30); CHLORIDE 98 mmol/L (98-107); CREATINE KINASE 92 U/L (30-135); GLUCOSE 99 mg/dL (75-110); TOTAL PROTEIN 7.5 g/dL (6.3-8.2)
[2020-05-03 01:27] LABS: CREATINE KINASE MB 0.46 ng/mL (<4.55); TROPONIN I < 0.012 ng/mL
--- NOTE | 2020-05-03 03:14 | ER Document Report ---
ED General - General Chief Complaint: Dizziness Stated Complaint: HEADACHE NAUSEA/ POSSIBLE HIGH BLOOD PRESSURE Time Seen by Provider: 05/03/20 00:18 Primary Care Provider: KELY HERNANDEZ MD [Primary Care Provider] - Follow up in 3-5 days Mode of Arrival: Ambulatory TRAVEL OUTSIDE OF THE [place] IN LAST 30 DAYS: No - HPI Notes: 39-year-old female with past medical history for parathyroid disorder, anxiety, calcium disorder to the emergency department with complaints of headache, nausea, dizziness, facial tingling and spasm that began today. She states that she had her parathyroid removed a while ago and since that has been having trouble with her calcium levels. She states she sees Dr. Barnes, as her down filler. She states that she knows that she has a significant change in the way that her body feels when her calcium runs either too high or too low. She states that this past she had her calcium checked and it was 8.3. She states they decided to place her on HCTZ to "get her to hold onto more calcium". Typically she takes calcium supplement to help keep her calcium up because she waits calcium. She states that when she took the HCTZ this morning she was concerned that maybe she was still wasting calcium and so she continue to take more calcium supplements. She states that she also starts to feel bad once her calcium starts to get an upper limits of normal. She states she starts to feel worse about 9.5 into the tendons. While in triage she got a dose of Toradol and Reglan. This is completely resolved her symptoms. She states that she no longer has a headache, nausea, facial tingling. She states that her dizziness is also gotten significantly better - Related Data Allergies/Adverse Reactions: cefaclor [From Ceclor] Allergy (Verified 05/05/19 08:58) Cephalosporins Allergy (Verified 05/05/19 08:58) hydromorphone HCl [From Dilaudid] Adverse Reaction (Intermediate, Verified 05/05/19 08:58) Hallucinations Home Medications: HCTZ, prozac, citrical, progesterone, terrisent Past Medical History - General Information source: Patient - Social History Smoking Status: Never Smoker Frequency of alcohol use: None Drug Abuse: None Family History: Reviewed & Not Pertinent Neurological Medical History: Reports: Hx Seizures Endocrine Medical History: Reports: Hx Hypothyroidism Renal/ Medical History: Reports: Hx Kidney Stones. Denies: Hx Peritoneal Dialysis Psychiatric Medical History: Reports: Hx Attention Deficit Hyperactivity Disorder - Immunizations Hx Diphtheria, Pertussis, Tetanus Vaccination: Yes Review of Systems - Review of Systems Constitutional: Chills, Fever EENT: denies: Blurred vision, Tearing, Double vision Cardiovascular: Dizziness. denies: Chest pain, Palpitations, Syncope, Lightheaded Respiratory: denies: Cough, Short of breath Gastrointestinal: Nausea. denies: Abdominal pain, Diarrhea, Vomiting Genitourinary: No symptoms reported Musculoskeletal: No symptoms reported Skin: No symptoms reported Neurological/Psychological: Headaches - See HPI -: Yes All other systems reviewed and negative Physical Exam - Vital signs Vitals: Temp Pulse Resp BP Pulse Ox 98.4 F 75 17 136/99 H 100 05/02/20 23:16 05/02/20 23:16 05/02/20 23:16 05/02/20 23:16 05/02/20 23:16 Interpretation: Normal - General General appearance: Appears well, Alert In distress: None - HEENT Head: Normocephalic, Atraumatic Eyes: Normal Pupils: PERRL Ears: Normal External canal: Normal Tympanic membrane: Normal. No: Bulging, Hemotympanum, Injected Sinus: Normal Nasal: Normal Mouth/Lips: Normal Mucous membranes: Normal Pharynx: Normal. No: Tonsillar hypertrophy, Uvular edema, Potential airway comprom. Neck: Normal, Supple - Respiratory Respiratory status: No respiratory distress Chest status: Nontender Breath sounds: Normal. No: Rales, Rhonchi, Wheezing Chest palpation: Normal - Cardiovascular Rhythm: Regular Heart sounds: Normal auscultation Murmur: No Notes: No leg edema - Abdominal Inspection: Normal Distension: No distension Bowel sounds: Normal Tenderness: Nontender. No: Tender, Hernández's sign, Guarding Organomegaly: No organomegaly - Back Back: Normal, Nontender. No: CVA tenderness - Neurological Neuro grossly intact: Yes Cognition: Normal Orientation: AAOx4 [place] Coma Scale Eye Opening: Spontaneous Jaswinder Coma Scale Verbal: Oriented [place] Coma Scale Motor: Obeys Commands Jaswinder Coma Scale Total: 15 Speech: Normal Cranial nerves: Normal. 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 Patient states her symptoms are much improved after Toradol and Reglan. I discussed with her her calcium results. Her calcium level is 9.9. She states that knowing her calcium level helps her correspond her symptoms. She admits that she typically starts to feel this way when her calcium levels starting to trend towards 10. We had a krysten conversation about what to do about her HCTZ and her calcium supplements for tomorrow. She will hold them for tomorrow. She will then have her calcium drawn on Monday through her down filler and follow with her down filler on Monday to discuss further treatmenti.e. to continue just HCTZ or continue with just calcium supplements. She is to return if she gets worse at all. Will send home with small amount of Fioricet and Zofran to help with any headaches. She has no focal neurological deficits. She states that this headache and her symptoms are very consistent with her calcium being out of whack for her. - Vital Signs Vital signs: Temp Pulse Resp BP Pulse Ox 98.3 F 71 18 130/89 H 99 05/03/20 04:10 05/03/20 04:10 05/03/20 04:10 05/03/20 04:10 05/03/20 04:10 - Laboratory Result Diagrams: 05/03/20 00:30 05/03/20 00:30 Laboratory results interpreted by me: 05/02/20 05/03/20 05/03/20 23:29 00:30 00:30 MCV 98 H Sodium 136.7 L Urine Blood MODERATE H - EKG Interpretation by Me Additional EKG results interpreted by me: 05/03/20 Rate 68 Rhythm: Sinus rhythm Interpretation: No STEMI, no ST changes, no LVH, no significant differences from EKG on May 05, 2019. Discharge - Discharge Clinical Impression: Calcium disorder, Nausea, Dizziness Headache Qualifiers: Headache type: unspecified Headache chronicity pattern: acute headache Intractability: not intractable Qualified Code(s): R51.9 - Headache, unspecified Condition: Stable Disposition: HOME, SELF-CARE Additional Instructions: Today her calcium levels were 9.9. We noted that this is a level that starts to make you feel poorly through your down filler. Hold your hydrochlorothiazide and your calcium supplements for tomorrow. Call your down filler on Monday and get a repeat calcium lab. Then speak with your down filler about the next stepi.e. continue HCTZ without calcium supplements or just calcium supplements. Return if worsening symptoms. Have any questions you may call and asked to speak with LUPE Titus. Prescriptions: Butalb/Acetaminophen/Caffeine [Fioricet (50-325-40 mg) Tablet] 1 tab PO Q6H #10 tab Ondansetron [Zofran Odt 4 mg Tablet] 1 - 2 tab PO Q4H PRN #15 tab.rapdis PRN Reason: For Nausea/Vomiting Referrals: KELY HERNANDEZ MD [Primary Care Provider] - Follow up in 3-5 days
[2020-05-03 04:12] VITALS: BP 130/89
--- NOTE | 2020-05-03 18:01 | EKG REPORT ---
SEVERITY:- NORMAL ECG - SINUS RHYTHM : Confirmed by: Serjio Bennett MD 03-May-2020 18:00:53
== END 2020-05-03 04:10 | disposition home or self-care (01) ==
LOC: ER 22:52
DX: E83.50 Unspecified disorder of calcium metabolism (principal); R11.0 Nausea; R42 Dizziness and giddiness; R51.9 Headache, unspecified; F41.9 Anxiety disorder, unspecified; R20.0 Anesthesia of skin; G51.39 Clonic hemifacial spasm, unspecified; Z88.8 Allergy status to other drugs, medicaments and biological substances
CPT/HCPCS: 93005; 99284; 96372; 36415; 82553; 82550; 85025; 80053; 81001; 84484; 83970; 93010; J1885